=== PATIENT | female | born 1965 | race Caucasian/White ===

== ENCOUNTER 2018-03-19 20:24 | Emergency (ER) | payer OTHER ==
[2018-03-19 20:30] VITALS: PULSE 107; TEMP 100.1; BMI 33.8
--- NOTE | 2018-03-19 20:31 | PDOC ---
Rapid Medical Evaluation Chief Complaint: Sore Throat Time Seen by Provider: 03/19/18 20:26 Medical Evaluation: Allergies Allergy/AdvReac Type Severity Reaction Status Date / Time No Known Allergies Allergy Verified 03/19/18 20:26 03/19/18 20:27 I have performed a brief in-person evaluation of this patient. The patient presents with a chief complaint of: sorethroat pain/ body aches/ fevers Pertinent physical exam findings: malaisic, and fevers I have ordered the following: influenza/ strep The patient will proceed to the ED for further evaluation. 03/19/18 20:31
[2018-03-19] MEDS ORDERED: ACETAMINOPHEN 500 MG TABLET (FP) PO ONE (21:20)
[2018-03-19] MEDS ORDERED: ACETAMINOPHEN 500 MG TABLET (FP) ONE (21:23)
--- NOTE | 2018-03-19 21:23 | PDOC ---
History of Present Illness - General Chief Complaint: Cold Symptoms Stated Complaint: Cold Symptoms Time Seen by Provider: 03/19/18 20:26 - History of Present Illness Initial Comments: 03/19/18 21:21 52-year-old female with out comorbidities presents for evaluation of upper respiratory symptoms and subjective fever at home 2 days Past History - Past Medical History Allergies/Adverse Reactions: Allergies Allergy/AdvReac Type Severity Reaction Status Date / Time No Known Allergies Allergy Verified 03/19/18 20:26 Home Medications: Ambulatory Orders NK [No Known Home Medication] 03/19/18 COPD: No Diabetes: Yes - Surgical History Cholecystectomy: Yes - Suicide/Smoking/Psychosocial Hx Smoking History: Never smoked Review of Systems - Review of Systems Constitutional: Yes: Fever HEENTM: Yes: Nose Congestion *Physical Exam - Vital Signs Last Vital Signs Temp Pulse Resp BP Pulse Ox 100.1 F H 107 H 20 179/108 H 99 03/19/18 20:27 03/19/18 20:27 03/19/18 20:27 03/19/18 20:27 03/19/18 20:27 - Physical Exam Comments: 03/19/18 21:21 HEAD: NC/AT EYES: Conjuntiva clear Ears: Canals and TM's normal NOSE: Clear discharge THROAT: Moist mucous membrances, oral pharanx clear, uvula midline NECK: Supple without adenopathy CARDIAC: S1 S2 LUNGS: CTA Full and Equal breath sounds ABDOMEN: Soft NT ND MS: Full ROM in all joints without edema NEUROLOGIC: No gross sensory or motor deficits, NVID SKIN: Normal color and temperature no lesions or rashes Moderate Sedation - Procedure Monitoring Vital Signs: Procedure Monitoring Vital Signs Temperature 100.1 F H 03/19/18 20:27 Pulse Rate 107 H 03/19/18 20:27 Respiratory Rate 20 03/19/18 20:27 Blood Pressure 179/108 H 03/19/18 20:27 O2 Sat by Pulse Oximetry (%) 99 03/19/18 20:27 *DC/Admit/Observation/Transfer Diagnosis at time of Disposition: Upper respiratory infection - Discharge Dispostion Disposition: HOME Condition at time of disposition: Stable Decision to Admit order: No - Referrals Referrals: Lexy Stern MD [Staff Physician] - Shorty Alcantara MD [Staff Physician] - Ninfa Salcido MD [Staff Physician] - Jim Suarez MD [Staff Physician] - Kathy Farris MD [Staff Physician] - Sharri Siddiqui MD [Staff Physician] - - Patient Instructions Printed Discharge Instructions: DI for Viral Upper Respiratory Infection -- Adult, DI for Common Cold Additional Instructions: Return to the emergency room should symptoms worsen or go unresolved. Continue the Tylenol and Motrin as directed for pain and fever follow-up with your primary care physician one to 2 days for further evaluation and treatment options. - Post Discharge Activity
[2018-03-19 21:31] VITALS: BP 178/92
== END 2018-03-19 21:31 | disposition home or self-care (01) ==
LOC: JERFT 20:24
DX: J06.9 Acute upper respiratory infection, unspecified (principal); E11.9 Type 2 diabetes mellitus without complications
CPT/HCPCS: 87070; 87804; 87880; 99281-25